=== PATIENT | male | born 1980 | race American Indian/Alaskan Native ===

== ENCOUNTER 2022-04-24 18:31 | Emergency (ER) | payer SELFPAY ==
--- NOTE | 2022-04-24 20:22 | Emergency Department Report ---
HPI - General Chief Complaint: Psych Time Seen by Provider: 04/24/22 20:10 - HPI HPI: Room 15 Patient is a 42-year-old male present with chief complaint of suicidal ideation. Patient states he has had suicidal ideation for 1 day. Patient states earlier today he attempted to kill himself by overdosing on alcohol and "lexus." patient denies any physical complaints but states he still feels suicidal ED Past Medical Hx - Past Medical History Hx Hypertension: Yes - Surgical History Past Surgical History?: No - Family History Family history: no significant - Social History Smoking Status: Never Smoker Substance Use Type: Alcohol, Other ("Lexus") ED Review of Systems ROS: Stated complaint: SUICIDAL Other details as noted in HPI Constitutional: no symptoms reported Eyes: denies: eye pain ENT: denies: throat pain Respiratory: no symptoms reported Cardiovascular: denies: chest pain Endocrine: no symptoms reported Gastrointestinal: denies: abdominal pain Genitourinary: denies: dysuria Musculoskeletal: denies: back pain Neurological: denies: headache Psychiatric: suicidal thoughts Physical Exam - Physical Exam Vital Signs: Vital Signs 04/24/22 19:52 Temperature 98 F Pulse Rate 108 H Respiratory 16 Rate Blood Pressure 160/94 [Right] O2 Sat by Pulse 100 Oximetry Physical Exam: GENERAL: The patient is well-developed well-nourished male sleeping on chair not appearing to be in acute distress. [] HEENT: Normocephalic. Atraumatic. Extraocular motions are intact. Patient has moist mucous membranes. NECK: Supple. Trachea midline CHEST/LUNGS: Clear to auscultation. There is no respiratory distress noted. HEART/CARDIOVASCULAR: Regular. There is no tachycardia. There is no gallop rub or murmur. ABDOMEN: Abdomen is soft, nontender. Patient has normal bowel sounds. There is no abdominal distention. SKIN: There is no rash. There is no edema. There is no diaphoresis. NEURO: The patient is awake, alert, and oriented. The patient is cooperative. The patient has no focal neurologic deficits. The patient has normal speech and gait. GCS 15 MUSCULOSKELETAL: There is no evidence of acute injury. ED Course Vital Signs 04/24/22 19:52 Temperature 98 F Pulse Rate 108 H Respiratory 16 Rate Blood Pressure 160/94 [Right] O2 Sat by Pulse 100 Oximetry - Reevaluation(s) Reevaluation #1: 04/24/22 21:15 Patient refused EKG ED Medical Decision Making - Lab Data Result diagrams: 04/24/22 21:19 04/24/22 21:19 Laboratory Tests 04/24/22 04/24/22 04/24/22 21:19 21:19 21:19 WBC 5.6 RBC 4.88 Hgb 14.4 Hct 42.4 MCV 87 MCH 30 MCHC 34 RDW 14.0 Plt Count 339 Lymph % (Auto) 34.8 Elmore % (Auto) 5.3 Eos % (Auto) 0.3 Baso % (Auto) 0.7 Lymph # (Auto) 1.9 Elmore # (Auto) 0.3 Eos # (Auto) 0.0 Baso # (Auto) 0.0 Seg Neutrophils % 58.9 Seg Neutrophils # 3.3 Sodium 144 Potassium 4.4 Chloride 104.6 Carbon Dioxide 26 Anion Gap 18 BUN 12 Creatinine 0.9 Estimated GFR > 60 BUN/Creatinine Ratio 13 Glucose 113 H Calcium 8.8 Total Bilirubin 0.40 AST 39 ALT 42 Alkaline Phosphatase 92 Total Creatine Kinase CK-MB (CK-2) CK-MB (CK-2) Rel Index Troponin T Total Protein 7.1 Albumin 4.4 Albumin/Globulin Ratio 1.6 Urine Color Urine Turbidity Urine pH Urine Protein Urine Glucose (UA) Urine Ketones Urine Blood Urine Nitrite Urine Bilirubin Urine Urobilinogen Ur Leukocyte Esterase Urine WBC (Auto) Urine RBC (Auto) Salicylates < 0.3 L Urine Opiates Screen Urine Methadone Screen Acetaminophen Ur Barbiturates Screen Ur Phencyclidine Scrn Ur Amphetamines Screen U Benzodiazepines Scrn Urine Cocaine Screen U Marijuana (THC) Screen 04/24/22 04/24/22 04/24/22 21:19 21:19 Unknown WBC RBC Hgb Hct MCV MCH MCHC RDW Plt Count Lymph % (Auto) Elmore % (Auto) Eos % (Auto) Baso % (Auto) Lymph # (Auto) Elmore # (Auto) Eos # (Auto) Baso # (Auto) Seg Neutrophils % Seg Neutrophils # Sodium Potassium Chloride Carbon Dioxide Anion Gap BUN Creatinine Estimated GFR BUN/Creatinine Ratio Glucose Calcium Total Bilirubin AST ALT Alkaline Phosphatase Total Creatine Kinase 643 H CK-MB (CK-2) 4.4 H CK-MB (CK-2) Rel Index 0.6 Troponin T < 0.010 Total Protein Albumin Albumin/Globulin Ratio Urine Color Straw Urine Turbidity Clear Urine pH 8.0 H Urine Protein <15 mg/dl Urine Glucose (UA) Neg Urine Ketones Neg Urine Blood Neg Urine Nitrite Neg Urine Bilirubin Neg Urine Urobilinogen < 2 Ur Leukocyte Esterase Neg Urine WBC (Auto) < 1.0 Urine RBC (Auto) < 1.0 Salicylates Urine Opiates Screen Urine Methadone Screen Acetaminophen 5.0 L Ur Barbiturates Screen Ur Phencyclidine Scrn Ur Amphetamines Screen U Benzodiazepines Scrn Urine Cocaine Screen U Marijuana (THC) Screen 04/24/22 Unknown WBC RBC Hgb Hct MCV MCH MCHC RDW Plt Count Lymph % (Auto) Elmore % (Auto) Eos % (Auto) Baso % (Auto) Lymph # (Auto) Elmore # (Auto) Eos # (Auto) Baso # (Auto) Seg Neutrophils % Seg Neutrophils # Sodium Potassium Chloride Carbon Dioxide Anion Gap BUN Creatinine Estimated GFR BUN/Creatinine Ratio Glucose Calcium Total Bilirubin AST ALT Alkaline Phosphatase Total Creatine Kinase CK-MB (CK-2) CK-MB (CK-2) Rel Index Troponin T Total Protein Albumin Albumin/Globulin Ratio Urine Color Urine Turbidity Urine pH Urine Protein Urine Glucose (UA) Urine Ketones Urine Blood Urine Nitrite Urine Bilirubin Urine Urobilinogen Ur Leukocyte Esterase Urine WBC (Auto) Urine RBC (Auto) Salicylates Urine Opiates Screen Negative Urine Methadone Screen Negative Acetaminophen Ur Barbiturates Screen Negative Ur Phencyclidine Scrn Negative Ur Amphetamines Screen Negative U Benzodiazepines Scrn Negative Urine Cocaine Screen Negative U Marijuana (THC) Screen Negative - Differential Diagnosis Suicidal ideation, polysubstance abuse Critical care attestation.: If time is entered above; I have spent that time in minutes in the direct care of this critically ill patient, excluding procedure time. ED Disposition Clinical Impression: Suicidal ideation Disposition: 30 STILL A PATIENT Is pt being admited?: No Does the pt Need Aspirin: No Condition: Stable Time of Disposition: 22:37 (Awaiting psych eval)
[2022-04-24 21:46] LABS: Bilirubin,Urine NEG (Negative); Blood,Urine NEG (Negative); Color,Urine Straw (Yellow); Protein,Urine <15 mg/dL mg/dL (Negative); Urobilinogen,Urine < 2 mg/dL (<2.0)
[2022-04-24 21:47] LABS: RBC,Urine < 1.0 /HPF (0.0-6.0)
[2022-04-24 21:50] LABS: WBC,Urine < 1.0 /HPF (0.0-6.0)
[2022-04-24 21:50] LABS: Basophils % (Auto) 0.7 % (0.0-1.8); Eosinophils % (Auto) 0.3 % (0.0-4.3); Hematocrit 42.4 % (35.5-45.6); Hemoglobin 14.4 gm/dl (11.8-15.2); Lymphocytes # (Auto) 1.9 K/mm3 (1.2-5.4); Lymphocytes % (Auto) 34.8 % (13.4-35.0); Mean Corpuscular HGB Conc 34 % (32-34); Mean Corpuscular Volume 87 fl (84-94); Monocytes # (Auto) 0.3 K/mm3 (0.0-0.8); Monocytes % (Auto) 5.3 % (0.0-7.3); Platelet Count 339 K/mm3 (140-440); Red Blood Count 4.88 M/mm3 (3.65-5.03)
[2022-04-24 21:55] LABS: Amphetamine Screen,Urine Negative; Benzodiazepines Screen,Urine Negative; Cannabinoid Screen,Urine Negative; Cocaine Screen,Urine Negative; Methadone Screen,Urine Negative; Opiate Screen,Urine Negative
[2022-04-24 22:10] LABS: Creatine Kinase MB 4.4 ng/mL (0.0-4.0)
[2022-04-24 22:11] LABS: Alanine Aminotransferase 42 units/L (7-56); Albumin 4.4 g/dL (3.9-5); BUN/Creatinine Ratio 13; Blood Urea Nitrogen 12 mg/dL (9-20); Calcium 8.8 mg/dL (8.4-10.2); Hemolysis Index 10
[2022-04-25 09:57] VITALS: BP 170/97
--- NOTE | 2022-04-25 10:12 | Consultation ---
History of Present Illness - Reason for Consult Consult date: 04/25/22 Reason for consult: SI - History of Present Psychiatric Illness The patient was seen today. He is calm, cooperative and polite. He says he came in for suicidal thoughts. The patient says "It's only because I was drinking." He says "I do suffer from depression and stress, but I was drinking a lot at the time." The patient says he drinks at times til he passes out. He says he typically doesn't drink every day but when he does, it's a lot. He presently denies SI/HI or hallucinations. The patient denies any past attempt of suicide. He also denies any past psych history or being on any psych meds. I discuss with the patient the need for rehab and starting an antidepressant. The patient then says "I don't drink like that." He also states he's not interested in an antidepressant right now. REVIEW OF SYSTEMS Constitutional: Negative for weight loss ENT: Negative for stridor Respiratory: Negative for cough or hemoptysis All other systems reviewed and are negative MENTAL STATUS EXAMINATION General Appearance and Behavior: Age appropriate, wearing appropriate clothes, cooperative, calm, polite Cooperation: cooperative Psychomotor Behavior: Psychomotor normal Mood: better Affect and affective range: congruent with stated affect Thought Process: goal directed Thought Content: None Speech: Normal volume, Regular rate and rhythm Suicidal Ideation: Denies Homicidal Ideation: Denies Hallucination: Denies Delusions: Denies Impulse Control: normal Insight and Judgment: normal Memory: good Attention: attentive Orientation: a/o x 3 Diagnoses: Major Depressive Disorder Alcohol Use Disorder Treatment Plan d/c 1013 No scripts given Medical: per primary Sitter: defer to primary Disposition: Do not recommend acute psychiatric inpatient treatment. The patient understands that if SI/HI arise she is to seek immediate assistance The personal financial representative to give her all necessary resource The patient to abstain from all illicit drug use and alcohol Will sign off. Thanks Case staffed with Dr. Whaley Medications and Allergies Allergies Allergy/AdvReac Type Severity Reaction Status Date / Time Fish Allergy Unknown Uncoded 04/24/22 19:53 Mental Status Exam - Vital signs Last Vital Signs Temp 98.9 F 04/25/22 09:56 Pulse 97 H 04/25/22 09:56 Resp 18 04/25/22 09:56 BP 170/97 04/25/22 09:56 Pulse Ox 98 04/25/22 09:57 Results Result Diagrams: 04/24/22 21:19 04/24/22 21:19 Abnormal lab results 04/24/22 04/24/22 04/24/22 Range/Units 21:19 21:19 21:19 Glucose 113 H (75-100) mg/dL Total Creatine Kinase (55-170) units/L CK-MB (CK-2) (0.0-4.0) ng/mL Urine pH (5.0-7.0) Salicylates < 0.3 L (2.8-20.0) mg/dL Acetaminophen 5.0 L (10.0-30.0) ug/mL Plasma/Serum Alcohol (0-0.07) % 04/24/22 04/24/22 04/24/22 Range/Units 21:19 21:19 Unknown Glucose (75-100) mg/dL Total Creatine Kinase 643 H (55-170) units/L CK-MB (CK-2) 4.4 H (0.0-4.0) ng/mL Urine pH 8.0 H (5.0-7.0) Salicylates (2.8-20.0) mg/dL Acetaminophen (10.0-30.0) ug/mL Plasma/Serum Alcohol 0.34 H (0-0.07) % All other labs normal.
--- NOTE | 2022-04-25 11:44 | Emergency Department Report ---
Blank Doc - Documentation Documentation: Medical record review. 42-year-old presented to the hospital with acute alcohol intoxication and suicidal ideation. Patient was seen and evaluated by mental health provided today and cleared for discharge without meds. Patient states that he was suicidal secondary to alcohol intoxication but currently denies suicidal ideation. I requested that nurse perform a CIWA protocol to ensure no symptoms and signs of withdrawal prior to discharge. ciwa score 1 pt will be discharged
== END 2022-04-25 13:03 | disposition home or self-care (01) ==
LOC: ED 18:31 → EEVIPCON 18:31 → ED 04-25 13:03
DX: R45.851 Suicidal ideations (principal); I10 Essential (primary) hypertension; Z20.822 Contact with and (suspected) exposure to COVID-19
CPT/HCPCS: 36415; 80053; 80307; 81001; 82550; 82553; 84484; 85025; 99284; U0003; 80320; G0480

== ENCOUNTER 2022-04-25 21:39 | Emergency (ER) | payer SELFPAY ==
[2022-04-25] MEDS ORDERED: MIDAZOLAM 2 MG/2 ML INJ IM PRN (22:28)
[2022-04-25] MEDS ORDERED: HALOPERIDOL LACTATE 5 MG/1 ML INJ IM PRN (22:28)
--- NOTE | 2022-04-25 22:28 | Event Note ---
Date: 04/26/22 Medical screening examination note: 42-year-old gentleman brought to the hospital today for suicidality intoxication. Patient is awake, breathing spontaneously, protecting airway and moving 4 extremities. Obtain appropriate laboratory studies. Placed patient on a 2013. Of note, patient recently seen for similar symptoms, and was cleared by our psychiatric team. Detailed history and physical to be performed by myself or oncoming provider. Vital Signs 04/25/22 04/25/22 04/26/22 21:48 22:28 02:30 Temperature 98 F 98.7 F 98.4 F Pulse Rate 102 H 108 H 77 Respiratory 16 18 18 Rate Blood Pressure 156/98 147/89 [Left] Blood Pressure 156/114 [Right] O2 Sat by Pulse 98 97 99 Oximetry
--- NOTE | 2022-04-25 23:00 | Emergency Department Report ---
ED General Adult HPI - General Chief complaint: Psych Stated complaint: SI Time Seen by Provider: 04/25/22 22:36 Source: patient, EMS ( EMS documentation not available at time of chart dictation ), RN notes reviewed, old records reviewed Mode of arrival: Ambulatory Limitations: Other (Alcohol intoxication) - History of Present Illness Initial comments: This is a 42-year-old gentleman. He reportedly presented to this department with a complaint of alcohol intoxication and suicidality. He was seen yesterday for similar symptoms. He had laboratory studies which were essentially unremarkable and noncontributory. He was seen by the psychiatric team, who ultimately advised discharge. Currently, the patient will not answer my questions. He is sitting on his stomach. He does not know who called 911. He did endorse to the nurse that he was suic idal. He does not describe the qualitative nature of his symptoms, exacerbating factors relieving factors or aggravating factors. -: unknown - Related Data Allergies Allergy/AdvReac Type Severity Reaction Status Date / Time Fish Allergy Unknown Uncoded 04/24/22 19:53 ED Review of Systems ROS: Stated complaint: SI Other details as noted in HPI Comment: Unobtainable due to pts medical conditions Psychiatric: suicidal thoughts ED Past Medical Hx - Past Medical History Hx Hypertension: Yes - Social History Smoking Status: Never Smoker Substance Use Type: Alcohol, Other ("Gala") ED Physical Exam - General Limitations: Other (Alcohol intoxication) General appearance: in no apparent distress, appears intoxicated, obese - Head Head exam: Present: atraumatic, normocephalic - Eye Eye exam: Present: normal appearance, EOMI. Absent: nystagmus - ENT ENT exam: Present: normal exam, normal orophraynx, mucous membranes moist, normal external ear exam - Neck Neck exam: Present: normal inspection, full ROM. Absent: tenderness, meningismus - Respiratory Respiratory exam: Present: normal lung sounds bilaterally. Absent: respiratory distress, wheezes, rales, rhonchi, stridor, decreased breath sounds - Cardiovascular Cardiovascular Exam: Present: regular rate, normal rhythm, normal heart sounds. Absent: bradycardia, tachycardia, irregular rhythm, systolic murmur, diastolic murmur, rubs, gallop - GI/Abdominal GI/Abdominal exam: Present: soft. Absent: distended, tenderness, guarding, rebound, rigid, pulsatile mass - Rectal Rectal exam: Present: deferred - Extremities Exam Extremities exam: Present: normal inspection, full ROM, other (2+ pulses noted in the bilateral upper and lower extremities. There is no palpable cord. negative Homans sign. Muscular compartments are soft. The pelvis is stable.). Absent: pedal edema, calf tenderness - Back Exam Back exam: Present: normal inspection, full ROM. Absent: tenderness, CVA tenderness (R), CVA tenderness (L), paraspinal tenderness, vertebral tenderness - Neurological Exam Neurological exam: Present: other (There is no facial droop. The tongue is midline. EOMI. 5 out of 5 strength in 4 extremities) - Psychiatric Psychiatric exam: Present: flat affect, suicidal ideation - Skin Skin exam: Present: warm, dry, intact, normal color. Absent: rash ED Course Vital Signs 04/25/22 04/25/22 04/26/22 21:48 22:28 02:30 Temperature 98 F 98.7 F 98.4 F Pulse Rate 102 H 108 H 77 Respiratory 16 18 18 Rate Blood Pressure 156/98 147/89 [Left] Blood Pressure 156/114 [Right] O2 Sat by Pulse 98 97 99 Oximetry - Reevaluation(s) Reevaluation #1: 04/26/22 00:33 Differential diagnosis, including not limited to: Alcohol intoxication, closed head injury, medical screening examination Assessment and plan: 42-year-old gentleman with alcohol intoxication clinically, with suicidality. He was seen yesterday for similar symptoms and had essentially unremarkable laboratory studies. Once clinically sober, he no longer endorsed suicidality, and was cleared by the psychiatric team. I suspect a similar situation today. He is placed on a 2013. We will obtain relevant laboratory studies. We will obtain CT scan of the brain and cervical spine. We will reassess. Should patient become clinically sober and have resolution of his psychiatric symptoms, it would be reasonable to discharge him with outpatient follow-up as he was yesterday. We will reassess 04/26/22 01:28 Laboratory studies reviewed and appreciated. Elevated blood alcohol level as expected. CK will decrease on its own with rest and oral hydration. Renal function is within normal limits. Awaiting CT scan brain and cervical spine 04/26/22 05:03 Multiple attempts were made to obtain CT scan of the brain and cervical spine. While in room 15, the patient is sleeping comfortably, and in no acute distress. However, upon arriving to CAT scan, patient becomes agitated, and tried to jump off of the table. Patient is snoring quite loudly, when not provoked or stimulated. Care will be transferred to the oncoming provider Lala Lennon, to reassess for clinical sobriety, and to follow-up on CT scan brain and C-spine. Assuming they are unremarkable, and that the patient is clinically sober with no further suicidality, I would consider it reasonable to discharge him with outpatient follow-up. Should the patient remain suicidal, in spite of being sober, he will require a psychiatric consultation. ED Medical Decision Making - Lab Data Result diagrams: 04/26/22 00:14 Vital Signs 04/25/22 04/25/22 21:48 22:28 Temperature 98 F 98.7 F Pulse Rate 102 H 108 H Respiratory 16 18 Rate Blood Pressure 156/98 [Left] Blood Pressure 156/114 [Right] O2 Sat by Pulse 98 97 Oximetry Vital Signs 04/25/22 04/25/22 21:48 22:28 Temperature 98 F 98.7 F Pulse Rate 102 H 108 H Respiratory 16 18 Rate Blood Pressure 156/98 [Left] Blood Pressure 156/114 [Right] O2 Sat by Pulse 98 97 Oximetry Lab Results 04/26/22 04/26/22 04/26/22 Range/Units 00:14 00:14 00:14 Sodium 140 (137-145) mmol/L Potassium 4.2 (3.6-5.0) mmol/L Chloride 103.6 (98-107) mmol/L Carbon Dioxide 23 (22-30) mmol/L Anion Gap 18 mmol/L BUN 18 (9-20) mg/dL Creatinine 1.0 (0.8-1.3) mg/dL Estimated GFR > 60 ml/min BUN/Creatinine Ratio 18 % Glucose 89 (75-100) mg/dL Calcium 8.5 (8.4-10.2) mg/dL Magnesium 1.90 (1.7-2.3) mg/dL Total Creatine Kinase 723 H (55-170) units/L Salicylates < 0.3 L (2.8-20.0) mg/dL Acetaminophen 5.0 L (10.0-30.0) ug/mL Plasma/Serum Alcohol (0-0.07) % 04/26/22 Range/Units 00:14 Sodium (137-145) mmol/L Potassium (3.6-5.0) mmol/L Chloride (98-107) mmol/L Carbon Dioxide (22-30) mmol/L Anion Gap mmol/L BUN (9-20) mg/dL Creatinine (0.8-1.3) mg/dL Estimated GFR ml/min BUN/Creatinine Ratio % Glucose (75-100) mg/dL Calcium (8.4-10.2) mg/dL Magnesium (1.7-2.3) mg/dL Total Creatine Kinase (55-170) units/L Salicylates (2.8-20.0) mg/dL Acetaminophen (10.0-30.0) ug/mL Plasma/Serum Alcohol 0.30 H (0-0.07) % Critical care attestation.: If time is entered above; I have spent that time in minutes in the direct care of this critically ill patient, excluding procedure time. ED Disposition Clinical Impression: Acute alcohol intoxication Disposition: 30 STILL A PATIENT Is pt being admited?: No Does the pt Need Aspirin: No Condition: Stable Additional Instructions: Please follow-up with an outpatient mental health specialist within the next week. Avoid consumption of alcohol, tobacco, smoke products and recreational drugs. Please return to the emergency room right away with new pain, worsened pain, migration of pain, projectile vomiting, change in mental status, confusion, inability tolerate liquid feeds, new, worsened or different symptoms not present on the initial emergency room evaluation professional and Agency Contacts To help [facility] Cr[facility] (19/02) [place] Crisis Line: Suicide Prevention Line: Crisis Text Line: Text ``START to 875712 Emergency: 911 Outpatient COMMUN[facility] Behavioral Health Resources: [place]: [facility] [address], [place] [address] [facility] [address] [place] [address] Sunday thru Sunday - 8am - 5pm Call to schedule an assessment for mental health and substance abuse programs [facility] Address: [address] [place] [address], [place] [address] Sunday thru Sunday- 7am-2pm [facility] Address: [address] [place], [place] [address] Sunday thru Sunday: 8:30AM-5PM Referrals: ARMANDO BURKETT MD [Primary Care Provider] - 3-5 Days
[2022-04-26] MEDS ORDERED: chlordiazePOXIDE 25 MG CAP PO PRN ×2 (00:34)
[2022-04-26] MEDS ORDERED: LORazepam 2 MG TAB PO PRN ×2 (00:34)
[2022-04-26 00:49] LABS: BUN/Creatinine Ratio 18; Blood Urea Nitrogen 18 mg/dL (9-20); Calcium 8.5 mg/dL (8.4-10.2); Hemolysis Index 12
[2022-04-26 08:50] VITALS: BP 151/80
--- NOTE | 2022-04-26 10:03 | Cat Scan Report ---
CT cervical spine wo con, CT head/brain wo con INDICATION: Medical clearance, alcohol intoxication. TECHNIQUE: CT head and cervical spine without contrast. All CT scans at this location are performed u sing CT dose reduction for ALARA by means of automated exposure control. COMPARISON: None. FINDINGS: HEAD: Intracranial: Mccain-white matter differentiation is maintained. No intracranial hemorrhage. No extra a xial collection.. No hydrocephalus. No herniation. Sinuses: Moderate mucosal thickening in the right maxillary sinus. Sinuses and mastoid air cells are essentially clear. Orbits: Globes are intact Bones: Remote left lamina papyracea fracture. No acute fracture. CERVICAL: Alignment: Reversal lordosis. Vertebrae: No fracture. No acute compression fracture. C1 and C2 are congruent. Atlantooccipital dre nt is maintained. Spondylolysis: No significant spondylosis. Soft tissues: No prevertebral soft tissue thickening. Additional findings: No significant additional findings. IMPRESSION: 1. No acute intracranial abnormality. 2.No cervical spine fracture. Signer Name: Arsenio Bolivar MD Signed: 04/26/2022 9:58 AM Workstation Name: [id number]
--- NOTE | 2022-04-26 10:47 | Progress Note ---
Subjective - Reason for Consult Consult date: 04/26/22 Reason for consult: ETOH - Chief Complaint Chief complaint: The patient was seen today. He was just cleared yesterday. The patient says "when I left yesterday I didn't have nowhere to go.." He says "i started back drinking." The patient says he wasn't given any resources and asked somebody where was the rehab but could not find it. I reassured to the patient that he was given several resources to assist him in substance treatment and continuity of his mental wellness. He says "was the resources on those papers xavier gave me?" I inform him that he was correct. He says "oh, I didn't even look at that stuff." The patient denies SI/HI or hallucinations. Recommend allowing the patient to sober up prior to discharge. Will have the prep manager reissue the patient all necessary resources. REVIEW OF SYSTEMS Constitutional: Negative for weight loss ENT: Negative for stridor Respiratory: Negative for cough or hemoptysis All other systems reviewed and are negative MENTAL STATUS EXAMINATION General Appearance and Behavior: Age appropriate, wearing appropriate clothes, cooperative, calm, polite Cooperation: cooperative Psychomotor Behavior: Psychomotor normal Mood: okay Affect and affective range: congruent with stated affect Thought Process: goal directed Thought Content: None Speech: Normal volume, Regular rate and rhythm Suicidal Ideation: Denies Homicidal Ideation: Denies Hallucination: Denies Delusions: Denies Impulse Control: normal Insight and Judgment: normal Memory: good Attention: attentive Orientation: a/o x 3 Diagnoses: Major Depressive Disorder Alcohol Use Disorder Treatment Plan d/c 1013 Zoloft 25mg po daily Medical: per primary Sitter: defer to primary Disposition: Do not recommend acute psychiatric inpatient treatment. The patient understands that if SI/HI arise she is to seek immediate assistance The prep manager to reissue all necessary resource The patient to abstain from all illicit drug use and alcohol Will sign off. Thanks Case staffed with Dr. Whaley Mental Status Exam - Vital signs Last Vital Signs Temp 98.5 F 04/26/22 08:50 Pulse 75 04/26/22 08:50 Resp 20 04/26/22 08:50 BP 151/80 04/26/22 08:50 Pulse Ox 96 04/26/22 08:50
== END 2022-04-26 12:31 | disposition home or self-care (01) ==
LOC: ED 21:39
DX: F10.129 Alcohol abuse with intoxication, unspecified (principal); Z91.013 Allergy to seafood; I10 Essential (primary) hypertension
CPT/HCPCS: 36415; 70450; 72125; 80048; 82550; 83735; 99285; J1630; J2250; 80320; 99284; G0480